=== PATIENT | male | born 1995 | race Caucasian/White ===

== ENCOUNTER 2022-02-25 09:11 | Emergency (ER) | payer OTHER ==
[~2022-02-25] VITALS: Ht 182.9 cm; Wt 131.5 kg
[2022-02-25 09:18] VITALS: BP 152/88
--- NOTE | 2022-02-25 09:18 | NUR ---
AMBULATED TO BED 9
--- NOTE | 2022-02-25 09:42 | NUR ---
26/M C/O ABDOMINAL PAIN SINCE THIS MORNING, REPORTS RECENT DX OF DIVERTICULITIS, STATING PAIN FEELS SIMILAR. DENIES URINARY SYMPTOMS, DENIES TAKING MEDS FOR PAIN. PT STATES THAT HE HAS HAD DIAHRREA BUT NO N/V. HIS PAIN RIGHT NOW 01/24 BUT JUMPS UP TO 06/26. PT RESTING IN BED. PMH: DENIES NKA
[2022-02-25] MEDS ORDERED: MORPHINE SULFATE 4 MG/ML SYR IVP ONE (09:55)
[2022-02-25] MEDS ORDERED: ONDANSETRON 4 MG/2 ML VIAL IVP ONE (09:55)
[2022-02-25 10:26] LABS: APPEARANCE,URINE CLEAR (CLEAR); BILIRUBIN,URINE NEGATIVE (NEGATIVE); BLOOD, URINE NEGATIVE (NEGATIVE); COLOR,URINE YELLOW (YELLOW); LEUKOCYTE ESTERASE ,URINE NEGATIVE (NEGATIVE); NITRITE, URINE NEGATIVE (NEGATIVE); UGLUCOSE NEGATIVE (NEGATIVE)
[2022-02-25 10:28] LABS: BASOPHILS # (AUTO) 0.1 K/uL (0.00-0.22); BASOPHILS % (AUTO) 0.8 % (0.0-2.0); EOSINOPHILS # (AUTO) 0.4 K/uL (0-0.4); EOSINOPHILS % (AUTO) 3.5 % (0.0-4.0); HEMATOCRIT 42.4 % (36-52); HEMOGLOBIN 14.4 g/dL (12.0-18.0); LYMPHOCYTES # (AUTO) 2.8 K/uL (2.0-11.5); LYMPHOCYTES % (AUTO) 25.6 % (20.5-51.1); MEAN CORPUSCULAR HEMOGLOBIN 29 pg (27-31); MEAN CORPUSCULAR HGB CONC 34 g/dL (33-37); MEAN CORPUSCULAR VOLUME 86.4 fL (80-94); MONOCYTES # (AUTO) 0.8 K/uL (0.8-1.0); MONOCYTES % (AUTO) 7.4 % (1.7-9.3); NEUTROPHILS % (AUTO) 62.7 % (42.2-75.2); PLATELET COUNT (AUTO) 323 K/uL (140-450); RED BLOOD CELL COUNT(AUTO) 4.91 MIL/uL (4.20-6.10); RED CELL DISTRIBUTION WIDTH 13.3 % (11.6-13.7); WHITE BLOOD COUNT (AUTO) 11.1 K/uL (4.8-10.8)
[2022-02-25 10:39] LABS: ALBUMIN 3.9 g/dL (3.4-5.0); ANION GAP 11.2 (8-16); CREATININE 0.8 mg/dL (0.6-1.3); POTASSIUM 4.2 mmol/L (3.5-5.1); TOTAL BILIRUBIN 0.7 mg/dL (0.0-1.0)
[2022-02-25] MEDS ORDERED: DICYCLOMINE 20 MG/2 ML VIAL IM ONE (11:15)
[2022-02-25] MEDS ORDERED: ONDA-188 PO (11:21)
[2022-02-25] MEDS ORDERED: ACET-8386 PO (11:21)
[2022-02-25] MEDS ORDERED: BEN10 PO (11:21)
[2022-02-25 11:52] VITALS: BP 133/74
--- NOTE | 2022-02-25 11:53 | NUR ---
Patient discharged with v/s stable. Written and verbal after care instructions given and explained. Patient alert, oriented and verbalized understanding of instructions. Ambulatory with steady gait. All questions addressed prior to discharge. ID band removed. Patient advised to follow up with PMD. Rx of zOFRAN, BENTYL, AND HYDROCODON-ACETAMINOPHEN given. Patient educated on indication of medication including possible reaction and side effects. Opportunity to ask questions provided and answered.WORK NOTE AND COPY OF LABS PROVIDED.
== END 2022-02-25 11:53 | disposition home or self-care (01) ==
LOC: MED 09:11
DX: K57.30 Diverticulosis of large intestine without perforation or abscess without bleeding (principal); F12.90 Cannabis use, unspecified, uncomplicated; Z98.890 Other specified postprocedural states
CPT/HCPCS: 36415; 74176; 80053; 81003; 83690; 85025; 96372; 96374; 96375; 99285; J0500; J2270; J2405